=== PATIENT | male | born 1970 | race Caucasian/White ===

== ENCOUNTER 2016-09-13 19:28 | Emergency (ER) | payer BC ==
[~2016-09-13] VITALS: Ht 175.3 cm; Wt 107.0 kg
[~2016-09-13 19:28] MED LIST: ABL10 PO; BUPR-79 PO; EFFSR150 PO
[2016-09-13 19:34] VITALS: TEMP 36.7; Ht 175.3 cm; Wt 107.0 kg
[2016-09-13 20:32] VITALS: BP 131/97; PULSE 71; O2SAT 96
--- NOTE | 2016-09-14 00:17 | EMERGENCY ROOM VISIT NOTE ---
History Report prepared by Jaja: Olinda Shaw Under the Supervision of: Dr. Orestes Navas M.D. First contact with patient: 20:05 Chief Complaint: REFERRED BY DOCTOR Stated Complaint: INGUINAL HERNIA PAIN History of Present Illness The patient is a 45 year old male who presents to the Emergency Room with complaints of intermittent groin pain beginning 3 hours ago. The patient states that he was getting out of a car when he began to have sharp groin pain on the right side. He reports that he saw his doctor who thought that he may have a hernia and referred him to the ED. The patient notes that he has a history of hypertension. He denies any vomiting, fever, urinary symptoms, diarrhea, and rectal bleeding. Source of History: patient Onset: 3 hours ago Position: other (right groin) Quality: sharp Timing: intermittent Associated Symptoms: No fevers, No vomiting, No diarrhea, No urinary symptoms Note: He denies any rectal bleeding. Review of Systems See HPI for pertinent positives & negatives. A total of 10 systems reviewed and were otherwise negative. Past Medical & Surgical Medical Problems: (1) Asthma (2) DEPRESSIVE DISORDER NEC (3) HYPERLIPIDEMIA NEC/NOS (4) HYPERTENSION NOS (5) HYPOTHYROIDISM NOS Family History No pertinent family history stated. Social History Smoking Status: Never Smoker Marital Status: Housing Status: lives with family Occupation Status: employed Current/Historical Medications Scheduled Aripiprazole (Abilify *), 10 MG PO DAILY Bupropion (Wellbutrin Sr), 150 MG PO DAILY Venlafaxine Ext Rel (Effexor Extended Rel *), 150 MG PO DAILY Allergies Coded Allergies: Sulfa Drugs (Verified Allergy, Mild, 2/5/10) Sulfamethoxazole (Verified Allergy, Mild, 2/5/10) Trimethoprim (Verified Allergy, Mild, 2/5/10) Physical Exam Vital Signs Date Time Temp Pulse Resp B/P (MAP) Pulse Ox O2 Delivery O2 Flow Rate FiO2 09/13/16 20:32 71 18 131/97 96 09/13/16 19:34 36.7 74 18 148/98 94 Room Air Physical Exam Constitutional: Vital signs reviewed. Eyes: Pupils are equal round reactive to light. Conjunctiva are noninjected. ENT: Pharynx is clear without erythema or exudate. Mucous membranes are moist. Neck supple without meningeal signs. Respiratory: Clear to auscultation bilaterally. Breath sounds are equal bilaterally. Cardiovascular: Regular rate and rhythm. No rubs or gallops. GI: Soft, nondistended. Bowel sounds are present. Right inguinal hernia, easily reducible, minimal tenderness. : No testicular tenderness or swelling. Musculoskeletal: No peripheral edema. No lower extremity tenderness. Integumentary: No cyanosis. Neurological: The patient is awake and alert. No focal deficits. Psychiatric: Normal affect. Medical Decision & Procedures ED Course 2005: The patient was evaluated in room C3. A complete history and physical exam was performed. 2022: Upon reevaluation, the patient appeared to have improvement of his symptoms. I discussed tonight's findings with the patient. He verbalized agreement of the treatment plan. The patient was discharged home. Medical Decision This is a 45-year-old male presents with groin pain. Differential diagnosis includes inguinal hernia, incarceration, kidney stone, strain. I did perform a limited focused review of portions of the patient's old chart on the electronic medical record. The patient has had no recent pertinent visits to this hospital. I did evaluate the patient as noted above. The patient developed sharp groin pain when getting up. He was seen by his physician and told he has a hernia and sent here for evaluation. On my evaluation he does have a easily reducible right inguinal hernia. There is no sign of incarceration or strangulation. The patient was given a hernia truss and referred to Dr. Lees for outpatient operative repair. He was given precautions regarding his diagnosis and discharged in good condition. Medication Reconcilliation Current Medication List: was personally reviewed by me Blood Pressure Screening Patient's blood pressure: Elevated blood pressure Blood pressure disposition: Referred to PCP Impression Primary Impression: Right inguinal hernia Scribe Attestation The scribe's documentation has been prepared under my direct and personally reviewed by me in its entirety. I confirm that the note above accurately reflects all work, treatment, procedures, and medical decision making performed by me. Departure Information Dispostion Home / Self-Care Referrals Jerald Roberts M.D. (PCP) Forms HOME CARE DOCUMENTATION FORM, IMPORTANT VISIT INFORMATION, WORK / SCHOOL INSTRUCTIONS Patient Instructions ED Hernia Inguinal, [facility] Additional Instructions You have been examined and treated today on an emergency basis only. This is not a substitute for, or an effort to provide, complete comprehensive medical care. It is impossible to recognize and treat all injuries or illnesses in a single emergency department visit. It is therefore important that you follow up closely with Dr. Lees of surgery rectal bleeding, inability to reduce your hernia. Call as soon as possible for an appointment. Return for worsening symptoms or if you develop fever, vomiting, or any other concerning symptoms. Use stool softeners if needed to avoid straining with bowel movements. Avoid any heavy lifting.
== END 2016-09-13 20:33 | disposition home or self-care (01) ==
LOC: C.EDB 19:29 → C.EDC 20:33
DX: K40.90 Unilateral inguinal hernia, without obstruction or gangrene, not specified as recurrent (principal); E78.5 Hyperlipidemia, unspecified; I10 Essential (primary) hypertension; E03.9 Hypothyroidism, unspecified; J45.909 Unspecified asthma, uncomplicated; F32.9 Major depressive disorder, single episode, unspecified; Z88.2 Allergy status to sulfonamides; Z88.8 Allergy status to other drugs, medicaments and biological substances; Z79.899 Other long term (current) drug therapy